=== PATIENT | female | born 1955 | race Caucasian/White ===

== ENCOUNTER 2023-09-04 20:43 | Emergency (ER) | payer MEDICARE, BC ==
[2023-09-04] MEDS ORDERED: Sodium Chloride 0.9% 1,000 ML IV ONE (22:58)
[2023-09-04 22:59] LABS: BASOPHILS ABSOLUTE AUTO 0.03 K/uL (0.00-0.10); BASOPHILS PERCENT AUTO 0.2 % (0.1-1.3); HEMATOCRIT 41.2 % (34.3-46.0); HEMOGLOBIN 13.8 g/dL (11.2-15.5); IMMATURE GRAN ABSOLUTE AUTO 0.04 K/uL (0.00-0.23); IMMATURE GRAN PERCENT AUTO 0.3 % (0.0-0.7); LYMPHOCYTES ABSOLUTE AUTO 1.49 K/uL (0.8-3.3); LYMPHOCYTES PERCENT AUTO 12.2 % (11.4-47.7); MEAN CORPUSCULAR HEMOGLOBIN 30.1 pg (31.6-35.5); MEAN CORPUSCULAR HGB CONC 33.5 g/dL (31.6-35.5); MEAN CORPUSCULAR VOLUME 89.8 fL (81.4-99.0); MONOCYTES ABSOLUTE AUTO 0.77 K/uL (0.20-0.90); MONOCYTES PERCENT AUTO 6.3 % (3.3-12.6); NEUTROPHILS ABSOLUTE AUTO 9.86 K/uL (1.0-7.6); PLATELET COUNT,PLT 177 K/uL (130-375); RED BLOOD CELL COUNT 4.59 M/uL (3.77-5.24); WHITE BLOOD CELL COUNT,WBC 12.2 K/uL (3.2-11.0)
[2023-09-04 23:00] LABS: LACTIC ACID 1.1 mmol/L (0.7-2.1)
[2023-09-04 23:31] LABS: BASE EXCESS CAPILLARY,ISTAT -2 mmol/L; CALCIUM IONIZED,ISTAT 1.18 mmol/L (1.12-1.32); HCO3 CAPILLARY,ISTAT 22.8 mmol/L (23.0-28.0); HEMATOCRIT,ISTAT 40 % (36-48); PCO2 CAPILLARY,ISTAT 34.5 mmHg (41.0-51.0); PH CAPILLARY,ISTAT 7.43 (7.31-7.41); PO2 CAPILLARY,ISTAT 97 mmHg; SODIUM,ISTAT 139 mmol/L (140-148); TCO2 CAPILLARY,ISTAT 24 mmol/L (24-29)
[2023-09-04 23:33] LABS: CREATININE 0.7 mg/dL (0.6-1.0); EST CRCL DRUG DOSING (CG) 57.24 mL/min
== END 2023-09-05 00:54 | disposition home or self-care (01) ==
LOC: JP.ED 20:43
DX: J18.9 Pneumonia, unspecified organism (principal); Z91.010 Allergy to peanuts; Z88.8 Allergy status to other drugs, medicaments and biological substances; Z79.899 Other long term (current) drug therapy
CPT/HCPCS: 36415; 71046; 82330; 82565; 82803; 82947; 83605; 84132; 84145; 84295; 85014; 85025; 96360; 99285; J7030; 99284

== ENCOUNTER 2023-11-27 16:54 | Emergency (ER) | payer MEDICARE, BC | END 2023-11-27 17:54 | disposition home or self-care (01) | LOC: JP.ED 16:54 | DX: S01.01XA Laceration without foreign body of scalp, initial encounter (principal); J45.909 Unspecified asthma, uncomplicated; Z91.010 Allergy to peanuts; Z88.2 Allergy status to sulfonamides; Z86.16 Personal history of COVID-19; Z79.51 Long term (current) use of inhaled steroids; Z79.899 Other long term (current) drug therapy; W01.198A Fall on same level from slipping, tripping and stumbling with subsequent striking against other object, initial encounter | CPT/HCPCS: 99283 ==